=== PATIENT | female | born 1935 | race Caucasian/White ===

== ENCOUNTER 2017-05-14 13:31 | Emergency (ER) | payer MEDICARE, MEDICAID ==
[2017-05-14] MEDS ORDERED: Sodium Chloride 0.9% 10 ML Syringe FLUSH PRN (14:39)
[2017-05-14] MEDS ORDERED: Morphine 2 MG/ML Syringe IVPUSH ONE (14:40)
[2017-05-14] MEDS ORDERED: Ondansetron 4 MG/2 ML SDV IVPUSH ONE (14:57)
[2017-05-14] MEDS ORDERED: Sodium Chloride 0.9% 1,000 ML IV ONE (15:58)
[2017-05-14] MEDS ORDERED: Famotidine 20 MG/2 ML SDV IVPUSH ONE (16:57)
[2017-05-14] MEDS ORDERED: Ketorolac 15 MG/ML SDV IVPUSH ONE (16:57)
[2017-05-14] MEDS ORDERED: LORazepam 2 MG/ML MDV IVPUSH ONE (17:17)
[2017-05-14] MEDS ORDERED: Glucagon,Human Recombinant 1 MG Vial IVPUSH ONE (17:17)
--- NOTE | 2017-05-14 18:02 | EDM.PDOC ---
ED HPI GENERAL MEDICAL PROBLEM - General Chief Complaint: Gastrointestinal Problem Stated Complaint: CANT SWALLOW Time Seen by Provider: 05/14/17 14:50 Source of Information: Reports: Patient History Limitations: Reports: No Limitations - History of Present Illness INITIAL COMMENTS - FREE TEXT/NARRATIVE: 81-year-old female presents for evaluation and treatment of difficulty swallowing. Patient presents with her daughter. Reports that since last night she has not been able to swallow any foods or fluids. She has not taken her medications since yesterday due to inability to swallow . She is spitting up anything she swallows. Daughter reports this has been going on for several months with her difficulty swallowing. It is now greatly worsen. She's never had any studies such as upper GI swallow or an upper endoscopy done. She is complaining of pain in her lower chest radiating to her back. Patient has a history of Alzheimer's disease and is pleasantly demented. Lower Chest Pain Score (Numeric/FACES): 3 - Related Data Allergies Allergy/AdvReac Type Severity Reaction Status Date / Time No Known Allergies Allergy Verified 05/14/17 13:41 Home Meds: Home Meds Cyanocobalamin (Vitamin B-12) [Cyanocobalamin Injection] 1,000 mcg IJ ASDIRECTED 05/14/17 [History] DULoxetine HCl [Duloxetine HCl] 60 mg PO DAILY 05/14/17 [History] Dexlansoprazole [Dexilant] 60 mg PO DAILY 05/14/17 [History] Folic Acid 0.8 mg PO DAILY 05/14/17 [History] Furosemide [Lasix] 20 mg PO DAILY 05/14/17 [History] Gabapentin [Neurontin] 600 mg PO BID 05/14/17 [History] LORazepam [Ativan] 0.25 mg PO Q6HR PRN #5 tablet 05/14/17 [Rx] Levothyroxine 75 mcg PO ACBREAKFAST 05/14/17 [History] Montelukast Sodium [Singulair] 10 mg PO DAILY 05/14/17 [History] Prevagen. 1 oz PO DAILY 05/14/17 [History] Primidone 50 mg PO DAILY 05/14/17 [History] Tiotropium [Spiriva] 18 mcg INH DAILY 05/14/17 [History] Valsartan 80 mg PO DAILY 05/14/17 [History] Vitamin E 1,000 unit PO DAILY 05/14/17 [History] metFORMIN HCl [Metformin HCl ER] 500 mg PO DAILY 05/14/17 [History] Past Medical History Cardiovascular History: Reports: Hypertension Respiratory History: Reports: COPD, SOB Gastrointestinal History: Reports: GERD Neurological History: Reports: Alzheimers Disease Endocrine/Metabolic History: Reports: Diabetes, Type II Social & Family History - Tobacco Use Smoking Status *Q: Former Smoker Years of Tobacco use: 61 Used Tobacco, but Quit: No ED ROS GENERAL - Review of Systems Review Of Systems: ROS reveals no pertinent complaints other than HPI. ED EXAM, GI/ABD - Physical Exam Exam: See Below Exam Limited By: No Limitations General Appearance: Alert, WD/WN, Mild Distress Throat/Mouth: Normal Inspection, Normal Lips, Normal Oropharynx, Normal Voice, No Airway Compromise Neck: Normal Inspection Respiratory/Chest: No Respiratory Distress, Lungs Clear, Normal Breath Sounds Cardiovascular: Normal Peripheral Pulses, Regular Rate, Rhythm, No Murmur Neurological: Alert Psychiatric: Normal Affect, Normal Mood Skin Exam: Warm, Dry, Normal Color EKG INTERPRETATION EKG Date: 05/14/17 Time: 15:25 Rhythm: NSR Rate (Beats/Min): 71 [place]: Normal P-Wave: Present QRS: Normal ST-T: Normal QT: Normal EKG Interpretation Comments: NSR at 71 bpm. No acute changes. Reviewed by myself and Dr. Sanchez Course - Vital Signs Last Recorded V/S: Last Vital Signs Temp 36.5 C 05/14/17 13:42 Pulse 74 05/14/17 13:42 Resp 18 05/14/17 13:42 BP 164/75 H 05/14/17 13:42 Pulse Ox 97 05/14/17 13:42 - Orders/Labs/Meds Labs: Laboratory Tests 05/14/17 05/14/17 Range/Units 14:55 14:55 WBC 7.41 (3.98-10.04) K/mm3 RBC 3.83 L (3.98-5.22) M/mm3 Hgb 11.4 (11.2-15.7) gm/L Hct 36.6 (34.1-44.9) % MCV 95.6 H (79.4-94.8) fl MCH 29.8 (25.6-32.2) pg MCHC 31.1 L (32.2-35.5) g/dl RDW Std Deviation 43.1 (36.4-46.3) fL Plt Count 235 (182-369) K/mm3 MPV 10.4 (9.4-12.3) fl Neut % (Auto) 72.8 H (34.0-71.1) % Lymph % (Auto) 15.7 L (19.3-51.7) % [place] % (Auto) 6.7 (4.7-12.5) % Eos % (Auto) 4.3 (0.7-5.8) Baso % (Auto) 0.4 (0.1-1.2) % Neut # (Auto) 5.39 (1.56-6.13) K/mm3 Lymph # (Auto) 1.16 L (1.18-3.74) K/mm3 [place] # (Auto) 0.50 H (0.24-0.36) K/mm3 Eos # (Auto) 0.32 (0.04-0.36) K/mm3 Baso # (Auto) 0.03 (0.01-0.08) K/mm3 Sodium 141 (136-145) mEq/L Potassium 5.2 H (3.5-5.1) mEq/L Chloride 101 (98-107) mEq/L Carbon Dioxide 31 (21-32) mEq/L Anion Gap 14.2 (5-15) BUN 20 H (7-18) mg/dL Creatinine 1.5 H (0.55-1.02) mg/dL Est Cr Clr Drug Dosing 28.00 mL/min Estimated GFR (MDRD) 33 (>60) mL/min BUN/Creatinine Ratio 13.3 L (14-18) Glucose 107 (83-115) mg/dL Calcium 9.4 (8.5-10.1) mg/dL Total Bilirubin 0.5 (0.2-1.0) mg/dL AST 14 L (15-37) U/L ALT 11 L (14-59) U/L Alkaline Phosphatase 132 H (46-116) U/L Total Protein 7.2 (6.4-8.2) g/dl Albumin 3.6 (3.4-5.0) g/dl Globulin 3.6 gm/dL Albumin/Globulin Ratio 1.0 (1-2) Meds: Medications Discontinued Medications Generic Name Dose Route Start Last Admin Trade Name Freq PRN Reason Stop Dose Admin Famotidine 20 mg 05/14/17 16:57 05/14/17 17:16 Pepcid IVPUSH 05/14/17 16:58 20 mg ONETIME ONE Administration Glucagon 1 mg 05/14/17 17:17 05/14/17 17:28 Glucagen IVPUSH 05/14/17 17:18 1 mg ONETIME ONE Administration Sodium Chloride 1,000 mls @ 100 mls/hr 05/14/17 15:58 05/14/17 16:15 Normal Saline IV 05/15/17 01:57 100 mls/hr ONETIME ONE Administration Ketorolac Tromethamine 15 mg 05/14/17 16:57 05/14/17 17:14 Toradol IVPUSH 05/14/17 16:58 15 mg ONETIME ONE Administration Lorazepam 0.25 mg 05/14/17 17:17 05/14/17 17:27 Ativan IVPUSH 05/14/17 17:18 0.25 mg ONETIME ONE Administration Morphine Sulfate 1 mg 05/14/17 14:40 05/14/17 15:49 Morphine IVPUSH 05/14/17 14:41 Not Given ONETIME ONE Ondansetron HCl 4 mg 05/14/17 14:57 05/14/17 15:00 Zofran IVPUSH 05/14/17 14:58 4 mg ONETIME ONE Administration Sodium Chloride 10 ml 05/14/17 14:39 05/14/17 15:04 Saline Flush FLUSH 10 ml ASDIRECTED PRN Administration Keep Vein Open - Radiology Interpretation Free Text/Narrative:: Chest x-ray shows no acute intrathoracic process. No widened mediastinum appreciated. - Re-Assessments/Exams Free Text/Narrative Re-Assessment/Exam: 05/14/17 18:03 Initially when I evaluated the patient she was swallowing her secretions. I do not feel that she needs an emergent upper endoscopy. She does not seem like she had an impacted food bolus and therefore decided against ordering glucagon and Ativan. I initially ordered her some morphine and Zofran. But she declined the morphine. I then ordered her some Pepcid and Toradol I had the patient sip some Sprite. she would swallow Sprite and spitted up about a minute later. I contacted Dr. Lopez who also agreed she did not, she needs an emergent upper endoscopy. He actually recommended doing an upper GI swallow prior to doing an endoscopy I had Dr. Sanchez see the patient. She has been able to take sips of water and keep the fluids down. He recommends giving the Ativan and glucagon. 05/14/17 18:22 Patient has now been swallowing successfully. Able to keep pills down. We will discharge her home with instructions to schedule an outpatient GI swallow study. Discharge instructions as documented. Outpatient or has been placement of an upper GI swallow. Departure - Departure Time of Disposition: 18:23 Disposition: Home, Self-Care 01 Condition: Fair Clinical Impression: Difficulty swallowing - Discharge Information Prescriptions: LORazepam [Ativan] 0.25 mg PO Q6HR PRN #5 tablet PRN Reason: Anxiety Instructions: Dysphagia Referrals: Isela Maria MD [Primary Care Provider] - Forms: ED Department Discharge Additional Instructions: Call radiology tomorrow to schedule an upper GI swallow. Call [phone] and ask for the radiology department. Follow-up with your primary care provider or Dr. Lopez this week for the GI swallow results and for further evaluation. May schedule Dr. Lopez at . Soft foods such as mashed potatoes, Jell-O, applesauce, etc. if you do take any solids make sure they are very small bites, pea-sized or smaller. splice your medications or crush them. They sure you take a sip of water or fluid before and after each sip. Ativan 0.25 mg every 6 hours as needed for discomfort. Please return to the ER if her symptoms change or worsen.
--- NOTE | 2017-05-15 07:32 | CR ---
Chest: Two views of the chest were obtained. Comparison: No prior chest x-ray. Heart size and mediastinum are within normal limits. Lungs are clear. Bony structures appear within normal limits for the patient's age. Impression: 1. Nothing acute is identified on two-view chest x-ray. Diagnostic code #1
== END 2017-05-14 18:48 | disposition home or self-care (01) ==
LOC: JD.ED 13:31
DX: R13.10 Dysphagia, unspecified (principal); I10 Essential (primary) hypertension; E11.9 Type 2 diabetes mellitus without complications; G30.9 Alzheimer's disease, unspecified; F02.80 Dementia in other diseases classified elsewhere, unspecified severity, without behavioral disturbance, psychotic disturbance, mood disturbance, and anxiety; Z79.899 Other long term (current) drug therapy; Z79.84 Long term (current) use of oral hypoglycemic drugs; Z87.891 Personal history of nicotine dependence
CPT/HCPCS: 36415; 71046; 80053; 85025; 93005; 96361; 96374; 96375; 99284; J1610; J1885; J2060; J2405; J7040; J7050; 93010

== ENCOUNTER 2018-05-06 11:03 | Emergency (ER) | payer MEDICARE, MEDICAID ==
--- NOTE | 2018-05-06 11:28 | EDM.PDOC ---
ED HPI GENERAL MEDICAL PROBLEM - General Chief Complaint: Lower Extremity Injury/Pain Stated Complaint: L HIP PAIN Time Seen by Provider: 05/06/18 11:27 Source of Information: Reports: Patient History Limitations: Reports: No Limitations - History of Present Illness INITIAL COMMENTS - FREE TEXT/NARRATIVE: 82-year-old female presents for evaluation and treatment of injuries sustained from a fall. Reportedly the fall occurred yesterday. She tripped over her oxygen tubing. She states that she fell on her left hip. She states she did not hit her head or have any syncope. She has ambulated on the leg but reports pain with this. She is primarily complaining of pain to the left hip and the left knee. States the pain to the left knee is greater than the left hip. No pain to the left knee prior to the fall. Pain is primarily behind the left knee. She has low back pain but states this is chronic and has not appreciated any change. The pain to the left ankle. No numbness or tingling to the leg. No history of any surgeries to the left hip or knee. Left Knee Pain Score (Numeric/FACES): 4 Left Hip Pain Score (Numeric/FACES): 4 - Related Data Allergies Allergy/AdvReac Type Severity Reaction Status Date / Time No Known Allergies Allergy Verified 05/06/18 11:24 Home Meds: Home Meds Dexlansoprazole [Dexilant] 60 mg PO DAILY 05/14/17 [History] Furosemide [Lasix] 20 mg PO DAILY 05/14/17 [History] Gabapentin [Neurontin] 600 mg PO BID 05/14/17 [History] Levothyroxine 75 mcg PO ACBREAKFAST 05/14/17 [History] Montelukast Sodium [Singulair] 10 mg PO DAILY 05/14/17 [History] Primidone 50 mg PO DAILY 05/14/17 [History] Tiotropium [Spiriva] 18 mcg INH DAILY 05/14/17 [History] metFORMIN HCl [Metformin HCl ER] 500 mg PO DAILY 05/14/17 [History] Aspirin [Halfprin] 81 mg PO DAILY 01/15/18 [History] B1/B2/Niacin/B12/Protease [B-Complex with B-12 Tablet] 0.5 tab PO DAILY [History] Bisacodyl [Dulcolax] 10 mg PO DAILY PRN 05/06/18 [History] Carvedilol [Coreg] 12.5 mg PO DAILY 05/06/18 [History] Cholecalciferol (Vitamin D3) [Vitamin D3] 2,000 mg PO DAILY 05/06/18 [History] Mineral Oil/I-Prop Myr/Water [Minerin] 1 applic TOP DAILY 05/06/18 [History] Sertraline [Zoloft] 100 mg PO DAILY 05/06/18 [History] Spironolactone [Aldactone] 25 mg PO DAILY 05/06/18 [History] Past Medical History HEENT History: Reports: Impaired Vision Cardiovascular History: Reports: Hypertension Respiratory History: Reports: COPD, SOB Other Respiratory History: chronic oxygen use at 2 liters Gastrointestinal History: Reports: GERD Neurological History: Reports: Alzheimers Disease Psychiatric History: Reports: Alzheimers Disease, Anxiety, Depression Endocrine/Metabolic History: Reports: Diabetes, Type II Social & Family History - Family History Family Medical History: Noncontributory - Tobacco Use Smoking Status *Q: Former Smoker Used Tobacco, but Quit: Yes Month/Year Tobacco Last Used: 03/7994 Second Hand Smoke Exposure: No - Caffeine Use Caffeine Use: Reports: Soda - Recreational Drug Use Recreational Drug Use: No Review of Systems - Review of Systems Review Of Systems: See Below Musculoskeletal: Reports: Back Pain (chronic, no change), Joint Pain (left hip, left knee) Neurological: Reports: Difficulty Walking. Denies: Numbness, Syncope, Tingling ED EXAM, GENERAL - Physical Exam Exam: See Below Exam Limited By: No Limitations General Appearance: Alert, WD/WN, No Apparent Distress Respiratory/Chest: No Respiratory Distress, Lungs Clear, Normal Breath Sounds Cardiovascular: Normal Peripheral Pulses, Regular Rate, Rhythm, No Murmur Peripheral Pulses: 2+: Posterior Tibial (L), Posterior Tibial (R), Dorsalis Pedis (L), Dorsalis Pedis (R) Extremities: Normal Inspection, Other (pain with rotation and flexion of the left hip; able to flex the knee to 90s degrees and able to fullly extend knee, no external rotation, no limb length shortening) Neurological: Alert, Oriented, Normal Cognition Psychiatric: Normal Affect, Normal Mood Skin Exam: Warm, Dry, Normal Color Course - Vital Signs Last Recorded V/S: Last Vital Signs Temp 98.1 F 02/06/19 11:17 Pulse 58 L 05/06/18 11:17 Resp 20 05/06/18 11:17 BP 156/48 H 05/06/18 11:17 Pulse Ox 95 05/06/18 11:17 - Orders/Labs/Meds Orders: Active Orders 24 hr Category Date Time Status Hip Min 2V or 3V w Pelvis Lt [CR] Stat Exams 05/06/18 11:37 Ordered Knee Min 4V Lt [CR] Stat Exams 05/06/18 11:37 Ordered - Radiology Interpretation Free Text/Narrative:: xrays of the left hip and knee reviewed by myself and Dr. Sanchez shows no acute fractures or dislocations - Re-Assessments/Exams Free Text/Narrative Re-Assessment/Exam: 05/06/18 12:14 Had patient ambulate with a walker around the ER. She did well. Reported pain to the posterior knee with ambulation but she was able to walk with a walker without significant pain. Will discharge home at this time. Recommend close follow-up in the clinic. Will notify if radiology read shows anything significant. Discharge instructions as documented. Departure - Departure Time of Disposition: 12:15 Disposition: Home, Self-Care 01 Condition: Fair Clinical Impression: Fall, Knee strain - Discharge Information *PRESCRIPTION DRUG MONITORING PROGRAM REVIEWED*: No *COPY OF PRESCRIPTION DRUG MONITORING REPORT IN PATIENT MARY: No Referrals: Reji Quick MD [Primary Care Provider] - Forms: ED Department Discharge Additional Instructions: OTC tylenol or motrin as needed for pain relief. Use a walker x 1 week. Rest, activity with walker as tolerated. Follow-up with PCP in one week for a recheck of symptoms. Please return to the ER should you symptoms change or worsen. - My Orders Last 24 Hours: My Active Orders 05/06/18 11:37 Hip Min 2V or 3V w Pelvis Lt [CR] Stat Knee Min 4V Lt [CR] Stat - Assessment/Plan Last 24 Hours: My Active Orders 05/06/18 11:37 Hip Min 2V or 3V w Pelvis Lt [CR] Stat Knee Min 4V Lt [CR] Stat
--- NOTE | 2018-05-06 14:08 | CR ---
Pelvis and left hip: AP view of the pelvis was obtained as well as AP and frog-leg lateral views of the left hip. Joint space within the right hip is maintained. Mild joint space narrowing is seen throughout the left hip. Osteopenia is seen. No fracture is seen. Minimal degenerative sclerosis is seen within the pubic symphysis. Impression: 1. Mild degenerative change and osteopenia. 2. Nothing acute is appreciated. Diagnostic code #2
--- NOTE | 2018-05-06 14:15 | CR ---
Left knee: Four views of the left knee were obtained. Comparison: No previous study. Small joint effusion is seen. Small detached osteophyte appears to be present off the medial tibial margin. Mild lateral joint space narrowing is seen with the minimal lateral chondrocalcinosis within the meniscus. No additional abnormality is seen. Impression: 1. Small detached osteophyte off the medial tibial margin. 2. Mild lateral joint space narrowing. 3. Small joint effusion. Diagnostic code #3
== END 2018-05-06 12:53 | disposition home or self-care (01) ==
LOC: JD.ED 11:03
DX: S86.912A Strain of unspecified muscle(s) and tendon(s) at lower leg level, left leg, initial encounter (principal); I10 Essential (primary) hypertension; Z87.891 Personal history of nicotine dependence; Z79.899 Other long term (current) drug therapy; W18.09XA Striking against other object with subsequent fall, initial encounter
CPT/HCPCS: 73502-26-LT; 73502-LT; 73564-26-LT; 73564-LT; 99282; 99284